=== PATIENT | male | born 1980 | race Caucasian/White ===

== ENCOUNTER 2025-01-26 09:55 | Emergency (ER) | payer OTHER, BC, SELFPAY ==
[2025-01-26 09:56] VITALS: BP 131/84; PULSE 87; RESP 19; TEMP 36.6; O2SAT 98; BMI 24.7
--- NOTE | 2025-01-26 10:06 | EX.ED.UPPERE ---
HPI History of Present Illness Chief Complaint: Upper Extremity Injury PFSH PFSH Allergy/AdvReac Type Severity Reaction Status Date / Time amoxicillin Allergy Mild RASH Verified 01/26/25 09:56 Social History Smoking Status: Never smoker EXAM Physical Exam Const Vital Signs: 01/26/25 09:56 Temperature 98 F Temperature Source Oral Pulse Rate 87 Respiratory Rate 19 H Blood Pressure 131/84 H Blood Pressure Mean 99 Pulse Ox 98 Oxygen Delivery Method Room Air [facility] [place] Narrative Medical decision making narrative: HISTORY OF PRESENT ILLNESS: Chief complaint: Hand pain 44-year-old male presents with right hand pain. Notes he smashed his right hand at work. No swelling is notable. He further states he attempted to stop a heavy object and falling and injured right hand. REVIEW OF SYSTEMS: Pertinent positives: Right hand pain Pertinent negatives: Numbness, tingling PHYSICAL EXAM: Nursing triage notes reviewed, Vital signs reviewed Constitutional: please see mdm Extremities: No edema Neuro: Intact 5/5 strength with ok sign (median), intact finger abduction (ulnar) intact wrist extension (radial n). Intact sensation in the radial, ulnar, and median nerve distributions. Skin: No rash or lesions noted MEDICAL DECISION MAKING: Chief Complaint: please see HPI External records reviewed: Reviewed prior imaging studies Factors affecting care: none Social determinants of health: none History obtained from others: none Consults: none [facility] Narrative: The patient was initially hemodynamically stable, afebrile and nontoxic-appearing. Exam TTP in the first second digit webspace. No snuffbox tenderness. I considered the following differential diagnosis: Right hand fracture, dislocation, contusion I obtained an x-ray to further elucidate etiology of the patient's complaints ALL IMAGES (IF OBTAINED) HAVE BEEN PERSONALLY REVIEWED AND INTERPRETED BY MYSELF. X-ray of the right hand was read reviewed person by myself showed no obvious fracture dislocation. Radiologist agreed my interpretation. The patient and/or family, caregivers express understanding. The patient and/or family, caregivers agrees with the plan. Shared decision making: I will have a discussion with the patient and or visitors regarding risk/benefits of further testing or admission. They will be made aware of of the risk/benefits inherent in this decision they will be given the opportunity to voice understanding. Total critical care time today provided was at least 0 minutes. This excludes separately billable procedures. Critical care time (if documented) is secondary to the patient having high probability of clinically significant/life threatening deterioration in the patient's condition which required my urgent intervention. Impression: 1. Acute right hand pain 2. Hand contusion Dispo: Discharge home This note was generated with [employer] dictation software. It may contain incorrect words, spelling, and punctuation that were not noted in review of the chart prior to signing. Discharge Plan Triage Chief Complaint: Upper Extremity Injury ED Provider: Ankit Wolf Dx/Rx/DC Orders Instructions: ED Hand Contusion, ED RICE Stand Alone Forms: ED Work / School Excuse Primary Care Provider: Care Physician,Lis Primary Referrals: [facility] [Provider Group] Activity Restrictions/Additional Instructions: Thank you for trusting us with your care today! Your x-ray was negative for a broken bone. You are likely suffering from a contusion (bruise). Please take Tylenol (2 pills, 650 mg), ibuprofen (2 pills, 400 mg) every 6 hours as needed for pain and fever control. Please use rest, ice compression elevation to further improve your symptoms. Please return to the emergency department if your symptoms change or worsen. Please follow with your primary care physician or [facility] for further outpatient evaluation and management. Print Language: Telugu Disposition Disposition: Home, Self Care Discharge Date/Time: 01/26/25 11:38
--- NOTE | 2025-01-26 10:12 | RAD_ITS ---
EXAM: XR Right Hand Complete, 3 or More Views CLINICAL INDICATION: PAIN TECHNIQUE: Frontal, lateral and oblique views of the right hand. COMPARISON: No relevant prior studies available. FINDINGS: BONES/JOINTS: See below. SOFT TISSUES: Soft tissue swelling without acute fracture. No radiopaque foreign body. RAD/Hand Min 3 Views IMPRESSION: 1. Soft tissue swelling without acute fracture. 2. If symptoms persist, further evaluation with CT is recommended. Reading Location: [facility]
[2025-01-26] MEDS: Ibuprofen 200 MG Tablet 400 MG PO (10:21)
[2025-01-26 11:25] VITALS: BP 130/78; PULSE 71; RESP 19; TEMP 36.7; O2SAT 97
== END 2025-01-26 11:38 | disposition home or self-care (01) ==
PROVIDERS: Emergency Provider Emergency Medicine; Visit Provider Emergency Medicine
DX: S60.221A Contusion of right hand, initial encounter (principal); W23.0XXA Caught, crushed, jammed, or pinched between moving objects, initial encounter; Y99.0 Civilian activity done for income or pay
CPT/HCPCS: 73130; 99282; A4216